=== PATIENT | male | born 1960 | race Hispanic/Latino ===

== ENCOUNTER 2017-03-09 13:25 | Emergency (ER) | payer OTHER ==
[2017-03-09] MEDS ORDERED: Ketamine 10 mg/mL 20 mL Inj ONE (13:38)
[2017-03-09] MEDS ORDERED: Tranexamic Acid 100 mg/mL 10 mL Inj ONE (13:46)
[2017-03-09] MEDS ORDERED: Tranexamic Acid Inj 1,000 MG in 0.9% Sodium Chloride 100 ML IV ONE (14:00)
[2017-03-09] MEDS ORDERED: fentaNYL-PF 50 mCg/mL 2 mL Inj IVPUSH PRN (14:00)
[2017-03-09] MEDS ORDERED: Rocuronium 10 mg/mL 5 mL Inj IVPUSH ONE (14:00)
[2017-03-09] MEDS ORDERED: Ketamine 100 mg/mL 5 mL Inj IV ONE (14:00)
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
[2017-03-09] MEDS ORDERED: TdaP Vaccine 0.5 mL Inj IM ONE (14:05)
[2017-03-09 14:10] LABS: INR 0.94 ratio
[2017-03-09 14:11] LABS: EOSINOPHILS % (AUTO) 1 % (0-5); MONOCYTES % (AUTO) 6 % (4-12); Mean Corpuscular Hemoglobin 30.7 pg (27.0-35.0); Mean Corpuscular Volume 89 fL (81-100); Platelet Count 286 bil/L (150-400)
[2017-03-09 14:12] LABS: BASOPHILS % (AUTO) 0 % (0-3); NEUTROPHILS % (AUTO) 66 % (40-74)
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
--- NOTE | 2017-03-09 14:14 | DRSVH ---
PROCEDURE: X-RAY CHEST ONE VIEW, PORTABLE ([id number]) INDICATIONS: POST CHEST TUBE TECHNIQUE: One view of the chest was acquired. COMPARISON: None. FINDINGS: Surgical changes and devices: There has been interval placement of a right-sided chest tube and nasog astric tube with distal tip approximately 3 cm superior to the frances. Lungs and pleura: There is mild appearance of hazy opacity within the right base possibly representin g fluid. Pneumothorax cannot be excluded. Mediastinum: Mediastinal contours appear normal. Heart size is normal. Bones and chest wall: No suspicious bony lesions. Overlying soft tissues appear unremarkable. Mult iple rib fractures on the right and subcutaneous chest wall emphysema is unchanged. IMPRESSION: Support lines as above. Multiple right-sided rib fractures and subcutaneous emphysema. Li chas right pleural effusion. Pneumothorax cannot be definitively excluded, however prominent artifact is noted. Dictated by: Liliana Urias M.D. on 03/09/2017 at 14:10 Approved by: Liliana Urias M.D. on 03/09/2017 at 14:12
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
--- NOTE | 2017-03-09 14:34 | ABG ---
DateTimeAnalyzed 14:23:38 -_ pH ____7.168 - 7.350 7.450 pCO2 ___59.0__ -mmHg 35.0 45.0 pO2 174 -mmHg 80.0 100 HCO3- ___21.4__ -mmol/L 22.0 26.0 ABE ___-6.8__ -mmol/L -2.0 2.0 tHb ___11.3__ -g/dL 12.0 18.0 O2Hb ___98.3__ -% COHb ____1.6__ -% 1.5 MetHb ____0.1__ -% 0.4 1.5 sO2 ___99.9__ -% 95.0 FIO2 __100.0__ -% Drawn By RS - Date/Time Notified____ 14:33:00 -_ Notified By rs - Notified Whom BRIGHT, MAHOGANY -____ K+ ____3.6__ -mmol/L 3.5 5.0 tO2 ___16.0__ -Vol%
[2017-03-09] MEDS ORDERED: SODIUM CHLORIDE 0.9% IV ONE (14:35)
[2017-03-09] MEDS ORDERED: TRANEXAMIC ACID IV ONE (14:35)
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
[2017-03-09 15:03] LABS: APPEARANCE,URINE HAZY (CLEAR,HAZY); COLOR,URINE BLOODY (YELLOW); OCCULT BLOOD,URINE LARGE (NEGATIVE); PH,URINE 5.5 (5.0-8.0); UROBILINOGEN,URINE NORMAL (NORMAL)
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
[2017-03-09] MEDS ORDERED: Rocuronium 10 mg/mL 5 mL Inj IV ONE (15:15)
== END 2017-03-09 15:20 | disposition short-term general hospital (02) ==
LOC: SED 13:25 → EDBD 13:25 → SED 15:20
DX: S09.8XXA Other specified injuries of head, initial encounter (principal); S22.5XXA Flail chest, initial encounter for closed fracture; I95.9 Hypotension, unspecified; V28.4XXA Motorcycle driver injured in noncollision transport accident in traffic accident, initial encounter; Y92.410 Unspecified street and highway as the place of occurrence of the external cause; Y93.89 Activity, other specified; Y99.8 Other external cause status; I10 Essential (primary) hypertension
CPT/HCPCS: 31500; 32551; 36415; 36620; 70450; 71010; 71260; 72125; 72170; 73560; 74177; 80053; 81001; 82375; 82803; 83735; 85014; 85018; 85025; 85384; 85610; 85730; 86850; 86922; 94799; 99291; 99292; G0480; Q9967